=== PATIENT | male | born 1975 | race Caucasian/White ===

== ENCOUNTER 2024-04-22 10:50 | Emergency (ER) | payer BC, SELFPAY ==
[2024-04-22 10:51] VITALS: BP 122/72; PULSE 79; RESP 16; TEMP 36.6; O2SAT 96
--- NOTE | 2024-04-22 11:13 | RAD_ITS ---
PROCEDURE: Right ankle radiographs REASON FOR EXAM: TRAUMA TECHNIQUE: Three views of the right ankle COMPARISON: None FINDINGS: See impression RAD/Ankle min 3 Views IMPRESSION: Negative for acute fracture or dislocation. Lateral soft tissue swelling. Tin y corticated ossicles inferior to the medial malleolus consistent with chronic injury. Reading Location: [facility]
--- NOTE | 2024-04-22 11:13 | RAD_ITS ---
PROCEDURE: Three views of the right foot REASON FOR EXAM: Pain, trauma TECHNIQUE: Three views of the right foot COMPARISON: None. FINDINGS: See impression RAD/Foot min 3 Views IMPRESSION: Negative for acute fracture or dislocation. Lateral ankle soft tissue swelling . Reading Location: [facility]
--- NOTE | 2024-04-22 11:14 | ED.VIS.LOWEX ---
HPI History of Present Illness Chief Complaint: Lower Extremity Injury Narrative Narrative: 48-year-old male who denies significant past medical history although has had multiple injuries and ankle sprains previously presents with injury to his right ankle that he sustained yesterday at around 6:45 PM. This is over 12 hours ago. He states he was climbing over a fence, and went to step down on the other side and must have stepped into a hole. He rolled his right ankle. He denies falling or hitting his head. No loss of consciousness. He states that below his ankle swelled up severely, and he now has pain different from when he simply rolls his ankle when he weightbears or walks. He denies other injuries. He has taken ibuprofen twice in the last 24 hours. Quite frankly, he presents for x-rays of his right ankle because he is having pain and swelling across his foot and below his right ankle. He states that the pain feels different from when he has sprained his ankle in the past. [facility] Medical History no medical history Home Medications ?Medication ?Instructions ?Recorded ?Last Taken ?Type NK 04/22/24 Unknown History Allergy/AdvReac Type Severity Reaction Status Date / Time Sulfa (Sulfonamide Allergy Swelling Verified 04/22/24 10:55 Antibiotics) Family History no significant family his Surgical History no surgical history Social History Smoking Status: Never smoker ROS ROS ED ROS Narrative Review of systems positive for right lateral foot and ankle pain and swelling. Pain worse with weightbearing and walking. Denies other injury. No hitting of head or loss of consciousness. EXAM Physical Exam Narrative Exam Narrative: GCS 15. ABCs intact. Afebrile. Vital signs noted. Cardiovascular examination regular rate and rhythm. Lungs clear to auscultation bilaterally. Abdomen is soft and nontender without guarding or rebound. Inspection of the right ankle does reveal mild ecchymosis and swelling in the talofibular ligament area across the dorsum of the foot heading medially. No crepitance. No palpable Achilles tendon deficit. No proximal fibular head tenderness. Able to toe plantarflex and dorsiflex right foot. Palpable dorsalis pedis pulse. No pain at base of fifth metatarsal. Good capillary refill of toes. Const Vital Signs: 04/22/24 10:51 Temperature 97.8 F Temperature Source Oral Pulse Rate 79 Respiratory Rate 16 Blood Pressure 122/72 H Blood Pressure Mean 88 Pulse Ox 96 Oxygen Delivery Method Room Air MDM MDM MDM Narrative Medical decision making narrative: Differential diagnosis includes but not limited to ankle sprain versus fracture versus foot sprain versus fracture. Patient declined any analgesics here in the emergency department. He has ice pack applied to lateral right ankle. x-rays were obtained of the right foot and of the right ankle and 3 views each and interpreted by myself independently. On my independent interpretation of the x-rays of the right ankle, there is soft tissue swelling but no evidence of an acute fracture. I reviewed the radiology report which confirms my independent interpretation. Additionally, on my independent interpretation of the right foot x-rays, there is no acute fracture. I reviewed the radiology report again, and it confirms my independent interpretation. At this point in time, he was placed in an Aircast. I offered him crutches but he states he has them already has a pair that is available to him. I offered to write him a prescription for higher strength NSAIDs but he declined and prefers [id number] medications. He was referred to podiatry on-call as needed to follow-up with in 1 to 2 weeks if not improving. He can also follow-up with his primary care provider. He will continue ice and elevation at home. Return instructions were reviewed. Disposition is discharged home in stable condition. History & Record Review Discussion w/independent historian: Patient Radiography Diagnostic Testing: Clinical Impression(s) from Imaging Studies Ankle X-Ray 04/22/24 11:13 IMPRESSION: Negative for acute fracture or dislocation. Lateral soft tissue swelling. Tiny corticated ossicles inferior to the medial malleolus consistent with chronic injury. Reading Location: [facility] Foot X-Ray 04/22/24 11:13 IMPRESSION: Negative for acute fracture or dislocation. Lateral ankle soft tissue swelling. Reading Location: [facility] Discharge Plan Triage Chief Complaint: Lower Extremity Injury ED Provider: Cliff Macdonald Dx/Rx/DC Orders Clinical Impression: Ankle sprain, Foot sprain Instructions: ED Foot Sprain, ED Ankle Sprain (Adult) Prescriptions: No Action NK Primary Care Provider: Gely Hathaway Referrals: Gely Hathaway MD [Primary Care Provider] - 1 Week if not improving Benjamin Painter DPM [Med Staff - Active Staff] - 10-14 Days if not better Activity Restrictions/Additional Instructions: Continue [id number] Tylenol or ibuprofen as needed for pain. Continue ice and elevation of your right foot and ankle over the next week. Wear Aircast. Follow-up with your primary care provider or podiatry. Return with increased pain or swelling, new or worsening symptoms. Print Language: Somali Disposition Disposition: Home, Self Care
[2024-04-22 12:03] VITALS: BP 122/72; PULSE 79; RESP 16; TEMP 36.6; O2SAT 96
== END 2024-04-22 12:10 | disposition home or self-care (01) ==
PROVIDERS: Emergency Provider Emergency Medicine; PCP Internal Medicine; Visit Provider Emergency Medicine
DX: S93.401A Sprain of unspecified ligament of right ankle, initial encounter (principal); X58.XXXA Exposure to other specified factors, initial encounter; Y93.39 Activity, other involving climbing, rappelling and jumping off; S93.601A Unspecified sprain of right foot, initial encounter
CPT/HCPCS: 73610; 73630; 99283; A4216